=== PATIENT | male | born 1945 | race Caucasian/White ===

== ENCOUNTER 2023-11-16 11:33 | Inpatient (IN) | payer MEDICARE, OTHER, SELFPAY ==
[2023-11-16] VITALS (22 sets, daily range): BP systolic 151–178; BP diastolic 71–86; PULSE 65–99; RESP 18–32; TEMP 35.6–36.7; O2SAT 87–97; BMI 37.0; BMI 35.8
--- NOTE | 2023-11-16 11:51 | EKG12_ITS ---
Test Reason : SOB Blood Pressure : / mmHG Vent. Rate : 068 BPM Atrial Rate : 068 BPM P-R Int : 178 ms QRS Dur : 098 ms QT Int : 416 ms P-R-T Axes : 090 010 215 degrees QTc Int : 442 ms Normal sinus rhythm CANNOT RULE OUT Septal infarct , age undetermined ST & T wave abnormality, consider lateral ischemia Abnormal ECG Confirmed by Andrew Carson ([id number]), society editor MILO BENNETT ([id number]) on 11/18/2023 9:22:56 AM Referred By: Confirmed By:Andrew Carson
--- NOTE | 2023-11-16 11:51 | VDLE_ITS ---
Reason For Study: SOB RIGHT LEFT GSV is normal. GSV is normal. CFV is compressible, spontaneous, phasic, CFV is compressible, spontaneous, phasic, competent and demonstrates normal competent, and demonstrates normal augmentation. augmentation. FV is compressible, spontaneous, phasic, FV is compressible, spontaneous, phasic, competent and demonstrates normal competent and demonstrates normal augmentation. augmentation. POP V is compressible, spontaneous, phasic, POP V is compressible, spontaneous, phasic, competent and demonstrates normal competent and demonstrates normal augmentation. augmentation. T/P Trunk is compressible. T/P Trunk is compressible. PTV is compressible. PTV is compressible. RT PerV is compressible. LT PerV is compressible. Procedure This is a venous duplex using B-mode, color flow and spectral Doppler. Exam performed portable in ED. A preliminary report was called and/or faxed to PT's RN & ED. VL/Venous Duplex US - Nickolas Extrem Interpretation Summary Deep veins of the lower extremities are bilaterally patent and compressible seg mentally. There is no evidence of deep vein thrombosis on either side. Valvular competence appears in tact within the proximal deep venous systems bilaterally. The great saphenous veins appear bila terally patent and compressible segmentally. Ordering Physician: Ranjith Kiser Referring Physician: N/A Performed By: Sima Adams, KAVITA, RVT
--- NOTE | 2023-11-16 11:55 | ED.VIS.DYS ---
HPI History of Present Illness Chief Complaint: Shortness of Breath Informant: patient, spouse/S.O. and family Narrative Narrative: Presents with spouse and family for evaluation. History of dementia at baseline. Sleep apnea with CPAP at night no home oxygen. Asthma history. Reports 10 days ago vacation to [place], first 2 days patient was fatigued. Had a productive cough and had fevers. They went on a cruise from there, this seen the physician on the cruise multiple times. November 10 had workup chest x-ray with possible pneumonia. He is on a 3-day course of Z-Vinicio in addition to Augmentin 3 times daily for 7 days. Reported there is leg swelling. No CHF history. Return 2 days ago, overnight increasing dyspnea and wheeze. Rescue inhaler use multiple times. They went to [facility], they were referred here for evaluation. Patient denies chest or abdominal pain. Denies any current leg pain. 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) Vascular dementia Kidney disease High blood pressure Diabetes type 2, uncontrolled Dementia Home Medications ?Medication ?Instructions ?Recorded ?Last Taken ?Type ascorbic acid (vitamin C) 500 mg 500 mg PO DAILY SUPPLEMENT 07/30/20 11/16/23 History capsule aspirin 81 mg tablet,delayed 81 mg PO DAILY HEART HEALTH 07/30/20 11/16/23 History release atorvastatin 80 mg tablet 80 mg PO DAILY CHOLESTEROL 07/30/20 11/16/23 History cholecalciferol (vitamin D3) 125 125 mcg PO DAILY SUPPLEMENT 07/30/20 11/16/23 History mcg (5,000 unit) capsule insulin degludec 100 35 unit subcut DAILY BLOOD SUGARS 07/30/20 11/16/23 History unit-liraglutide 3.6 mg/mL(3 mL) subcutaneous pen (Ena 100/3.6) metoprolol tartrate 25 mg tablet 25 mg PO DAILY BLOOD PRESSURE 07/30/20 11/16/23 History blood sugar diagnostic (OneTouch #50 ea 08/26/21 Unknown Rx Ultra Test strips) aripiprazole 2 mg tablet 2 mg PO QHS MOOD #30 tabs 12/23/22 11/15/23 Rx bee pollen 550 mg capsule 550 mg PO DAILY SUPPLEMENT 12/23/22 11/16/23 History citalopram 20 mg tablet 20 mg PO DAILY DEPRESSION #30 tabs 12/23/22 11/16/23 Rx amlodipine 10 mg tablet 10 mg PO DAILY BLOOD PRESSURE 11/16/23 11/16/23 History cyanocobalamin (vitamin B-12) 5,000 mcg sublingual DAILY 11/16/23 11/16/23 History 5,000 mcg sublingual tablet SUPPLEMENT (Vitamin B-12) empagliflozin 10 mg tablet 10 mg PO DAILY BLOOD SUGARS 11/16/23 11/16/23 History (Jardiance) metformin 500 mg tablet,extended 500 mg PO BID BLOOD SUGARS 11/16/23 11/16/23 History release 24 hr zinc acetate 50 mg (zinc) capsule 50 mg PO DAILY SUPPLEMENT 11/16/23 11/16/23 History Allergy/AdvReac Type Severity Reaction Status Date / Time No Known Allergies Allergy Verified 11/16/23 11:35 Social History Smoking Status: Never smoker ROS ROS ED Constitutional Constitutional ED: Denies chills, fever(s) or sweats Eyes Eyes: Denies change in vision ENT ENT ED: Denies dysphagia or sore throat Cardiovascular Cardiovascular: Denies chest pain, leg edema, palpitations or racing heartbeat Respiratory/Chest Respiratory/Chest: Reports cough and dyspnea; Denies dyspnea on exertion Gastrointestinal Gastrointestinal: Denies abdominal pain, diarrhea, nausea or vomiting Genitourinary Genitourinary ED: Denies dysuria, hematuria or urinary frequency Musculoskeletal Musculoskeletal: Denies back pain, extremity pain or neck pain Integumentary Denies rash or wounds Neurologic Neurologic: Denies headache(s), paresthesias or weakness EXAM Physical Exam Const Vital Signs: 11/16/23 11:33 11/16/23 11:42 11/16/23 11:59 Temperature 96.8 F L Temperature Source Temporal Pulse Rate 78 70 Respiratory Rate 22 H 21 H Respiratory Effort Short of Breath Respiratory Depth Shallow Respiratory Pattern Normal Blood Pressure 155/76 H Blood Pressure Mean 102 Pulse Ox 90 Oxygen Delivery Method Room Air Room Air Oxygen Flow Rate (L/min) 11/16/23 11:59 11/16/23 12:35 11/16/23 12:35 Temperature 96.8 F L Temperature Source Oral Pulse Rate 65 Respiratory Rate 21 H Respiratory Effort Respiratory Depth Respiratory Pattern Blood Pressure 162/77 H Blood Pressure Mean 105 Pulse Ox 95 97 Oxygen Delivery Method Nasal Cannula Room Air Nasal Cannula Oxygen Flow Rate (L/min) 2 2 11/16/23 13:00 11/16/23 13:27 11/16/23 14:00 Temperature 96.0 F L 97.9 F Temperature Source Temporal Temporal Pulse Rate 65 73 73 Respiratory Rate 21 H 18 20 H Respiratory Effort Respiratory Depth Respiratory Pattern Normal Blood Pressure 160/78 H 173/84 H Blood Pressure Mean 105 113 Pulse Ox 97 96 Oxygen Delivery Method Nasal Cannula Nasal Cannula Oxygen Flow Rate (L/min) 2 11/16/23 14:34 11/16/23 14:38 11/16/23 15:00 Temperature 97.7 F L Temperature Source Oral Pulse Rate 82 99 Respiratory Rate 24 H 32 H Respiratory Effort Respiratory Depth Respiratory Pattern Tachypnea Blood Pressure 178/86 H Blood Pressure Mean 116 Pulse Ox 92 88 Oxygen Delivery Method Room Air Room Air Oxygen Flow Rate (L/min) Positive well nourished and well developed Constitutional Narrative: 2 L nasal cannula, no respiratory distress. General Appearance ED: well developed and NAD HEENT Reports moist mucous membranes normocephalic and atraumatic Eyes EOMs intact bilaterally and conjunctivae normal General Eye ED: Yes normal appearance of both eyes Neck no lymphadenopathy and supple General: Negative for tenderness Chest Wall Chest: Negative for tenderness Resp Resp Narrative: Coarse breath sounds at bases with wheezing. Effort and Inspection: Negative for respiratory distress Cardio regular rate, regular rhythm and no murmurs Peripheral Pulses: pulses 2+ throughout GI normal to inspection, nondistended, normoactive bowel sounds and non-tender Palpation: Negative for guarding or rebound tenderness present Back/Spine no CVA tenderness and no thoracic nor lumbar tenderness Extremity normal to inspection Extremity Narrative: Soft compartments medial thigh and calf bilaterally. Pulses intact. No swelling noted. General Extremety ED: Negative for edema or tenderness General Extremity: Negative for edema Neuro no sensory deficits noted Neuro Narrative: Alert to person and place, baseline. Sensorium / Orientation: awake and alert Skin no rashes or lesions noted and no wounds Sepsis Attestation Sepsis Attestation: Sepsis Ruled Out MDM MDM MDM Narrative Medical decision making narrative: Interventions / MDM: Differential diagnosis: Diagnosis considered but do not suspect: N/A My EKG interpretation: Sinus rate of 68, no ST changes. T wave inversion lateral leads flattening on inferior leads, no old for comparison. Imaging independently reviewed and interpreted by myself: Ultrasound lower extremity: Negative for DVT. Two-view chest x-ray: Scarring at lung bases with hyperinflation. No infiltrates also read by radiology. External documents reviewed: N/A Test considered but not ordered:N/A ED course: Patient worsening cough wheeze recent pneumonia diagnosis on antibiotics. 90% on room air on arrival. He was placed on 2 L nasal cannula by nursing. Will check laboratory work and repeat two-view chest x-ray. Aerosol treatment ordered due to wheezing. With reported travel recent swelling, will ultrasound both lower extremities. EKG T wave inversion lateral leads flattening inferior leads there is no old for comparison. Therefore troponin was added. 1320: Troponin negative. Labs white count 13.6. 2 out of 4 SIRS criteria for lactic acid and blood culture x 1 ordered with shortage of blood culture bottles at this time. Chest x-ray linear scarring appointment radiology. Negative for DVTs on ultrasound. Reevaluation symptoms coarse breath sounds still heard however appears much improved. Is on 2 L nasal cannula. CKD stage III with stable creatinine and GFR. Discussed with family risks and benefits with his recent travel for CT scan IVCON to rule out PE and a better evaluation of his lung cowart. They agree with this. Fluids were started. CT angiogram ordered for further evaluation. Additional aerosol treatment ordered. 1435: Reevaluation pending results of increased coarse breathing and wheezing. Additional aerosol treatment ordered. CT scan results need for PE or infiltrates. Patient was ambulated return desatted down to 88%. Continued on oxygen. Added Solu-Medrol with her his asthma history and wheezing. Glucose 188 in the lab. Considered noninvasive ventilation due to increased work of breathing initially was ordered however with respiratory evaluation symptoms calm down. They will plan on Airvo on the medical floor. Reevaluate the patient he is stable less tachypneic. I discussed with hospitalist Dr. Milian for admission to the medical floor. Will add respiratory panel and COVID studies. Re-evaluation: stable Disposition discussed with patient/family/significant other: Patient and family Case discussed with consulting clinician: N/A This note was generated with [employer]parable Things[employer] software. It may contain incorrect words, spelling, and punctuation that were not noted in checking the note before signing. Lab Data Attestation: I reviewed the patient's lab results. Labs: Laboratory Results - last 24 hr 11/16/23 11/16/23 11:50 12:53 WBC 13.6 H RBC 5.55 Hgb 15.7 Hct 49.5 MCV 89.2 MCH 28.3 MCHC 31.7 L RDW Std Deviation 45.7 H RDW Coeff of Jose Armando 14.0 Plt Count 343 MPV 9.6 Immature Gran % (Auto) 0.500 Neut % (Auto) 83.8 H Lymph % (Auto) 6.8 L Wirt % (Auto) 4.4 Eos % (Auto) 4.1 Baso % (Auto) 0.4 Absolute Neuts (auto) 11.4 H Absolute Lymphs (auto) 0.92 Nucleated RBC % 0 Sodium 143 Potassium 4.1 Chloride 111 H Carbon Dioxide 24.0 Anion Gap 8 BUN 20 H Creatinine 1.63 H Estim Creat Clear Calc 48.63 Est GFR (MDRD) Af Amer 53 L Est GFR (MDRD) Non-Af 44 L BUN/Creatinine Ratio 12.3 Glucose 181 H Lactic Acid 1.3 Calcium 9.5 Total Bilirubin 0.60 AST 14 L ALT 19 Alkaline Phosphatase 108 Troponin I High Sens 20 Total Protein 7.2 Albumin 2.7 L Globulin 4.5 H Albumin/Globulin Ratio 0.6 L Radiography Diagnostic Testing: Clinical Impression(s) from Imaging Studies Chest X-Ray 11/16/23 12:19 IMPRESSION: Hyperinflation. Findings suggestive of scarring at the lung bases. Electronically Signed: Wale Mcclain MD at 12:41 EDT , Chest CTA 11/16/23 13:19 IMPRESSION: No focal consolidation is seen. Scattered calcified granulomas. 4.3 mm noncalcified nodule in the peripheral lateral aspect of the right middle lobe suggestive of a possible small granuloma. Electronically Signed: Wale Mcclain MD at 15:02 EDT , Discharge Plan Triage Chief Complaint: Shortness of Breath ED Provider: Ranjith Kiser Dx/Rx/DC Orders Clinical Impression: Dementia, Asthma exacerbation, Hypoxia, Hyperglycemia, Bronchitis, CKD (chronic kidney disease) stage 3, GFR 30-59 ml/min Prescriptions: No Action atorvastatin 80 mg tablet 80 mg PO DAILY aspirin 81 mg tablet,delayed release (DR/EC) 81 mg PO DAILY metoprolol tartrate 25 mg tablet 25 mg PO DAILY Xultophy 100/3.6 100 unit-3.6 mg /mL (3 mL) insulin pen 35 unit SC DAILY ascorbic acid (vitamin C) 500 mg capsule 500 mg PO DAILY cholecalciferol (vitamin D3) 125 mcg (5,000 unit) capsule 125 mcg PO DAILY bee pollen 550 mg capsule 550 mg PO DAILY citalopram 20 mg tablet 20 mg PO DAILY Qty: 30 12RF aripiprazole 2 mg tablet 2 mg PO QHS Qty: 30 12RF amlodipine 10 mg tablet 10 mg PO DAILY metformin 500 mg tablet extended release 24 hr 500 mg PO BID Jardiance 10 mg tablet 10 mg PO DAILY cyanocobalamin (vitamin B-12) [Vitamin B-12] 5,000 mcg tablet, sublingual 5,000 mcg sublingual DAILY zinc acetate 50 mg (zinc) capsule 50 mg PO DAILY (DME) OneTouch Ultra Test Strip See Rx Instructions .ROUTE .MEDSUPPLY Qty: 50 12RF Rx Instructions: As directed Primary Care Provider: Clara Rice NP Referrals: NOT,DEFINED [Non-Staff] - Print Language: Swiss Disposition Disposition: Acute Care Hospital [facility]
[2023-11-16] MEDS: Ipratropium/Albuterol Sulfate 3 ML AMPUL.NEB INHALATION ×4 (11:59→20:00)
[2023-11-16 12:09] LABS: Absolute Lymphocyte Count 0.92 X10^3/uL (0.83-4.51); Absolute Neutrophil Count 11.4 X10^3/uL (2.0-7.7); Basophil# 0.05 X10^3/uL; Basophil% 0.4 % (0-1); Eosinophil# 0.56 X10^3/uL; Eosinophils% 4.1 % (0-5); Hematocrit 49.5 % (40-54); Hemoglobin 15.7 g/dL (13.0-16.5); Lymphocyte # 0.92 X10^3/ul (0.83-4.51); Lymphocyte % 6.8 % (19-41); Mean Corp Hgb Conc 31.7 g/dL (32-36); Mean Corpuscular Hgb 28.3 pg (27.0-32.0); Mean Corpuscular Volume 89.2 fL (80-94); Mean Platelet Vol. 9.6 fl (6.2-12.0); Monocyte# 0.59 X10^3/uL; Monocyte% 4.4 % (0-10); NRBC Flagged by Analyzer 0 % (0-5); Neutrophil # 11.37 X10^3/uL (2.7-7.7); Neutrophil % 83.8 % (47-70); Platelet Count 343 K/mm3 (150-450); RBC Distribution Width SD 45.7 fl (35.1-43.9); Red Blood Count 5.55 M/mm3 (4.6-6.2); White Blood Count 13.6 K/mm3 (4.4-11.0)
--- NOTE | 2023-11-16 12:19 | RAD_ITS ---
STUDY: X-RAY CHEST REASON FOR EXAM: Male, 78 years old. Cough. Shortness of breath. TECHNIQUE: PA and lateral views of the chest. COMPARISON: None. FINDINGS: EKG electrodes are seen. Hyperinflation. Mild increased linear markings at the lung bases with areas of confluent slightly worse on the left side. This is suggestive of a scarring. No definite infiltrate is seen. There is no demonstrated pleural abnormality. Sternal cerclage wires and vascular clips are present from a prior sternotomy and coronary artery bypass graft procedure (CABG). Normal mediastinum and aurora. Normal visualized pulmonary arteries. There is atherosclerotic tortuosity of the aortic arch and descending thoracic aorta. There are degenerative changes of the visualized thoracic spine. Normal visualized ribs, clavicles, and shoulders. There is no demonstrated abnormality of the visualized soft tissue structures of the upper abdomen. RAD/Chest PA and Lateral IMPRESSION: Hyperinflation. Findings suggestive of scarring at the lung bases. Electronically Signed: Wale Mcclain MD at 12:41 EDT ,
[2023-11-16 12:23] LABS: ALB/GLOB Ratio 0.6 RATIO (0.9-2.4); AST(SGOT) 14 U/L (15-37); Alanine Aminotransfer ALT/SGPT 19 U/L (16-61); Albumin, Serum 2.7 g/dL (3.2-5.0); Alkaline Phosphatase 108 U/L (45-117); Anion Gap 8 (5-15); BUN 20 mg/dL (7-18); BUN/Creat Ratio 12.3 RATIO (10-20); Calcium,Total 9.5 mg/dL (8.5-10.1); Chloride 111 mmol/L (98-107); Creatinine, Serum 1.63 mg/dL (0.70-1.30); EST Glomerular Filtration Rate 44 mL/min (>60); Est Glom Filt Rate - Afr Amer 53 mL/min (>60); Estimated Creatinine Clearance 48.63 ml/min; Globulin 4.5 g/dL (2.2-4.2); Glucose 181 mg/dL (74-106); Potassium 4.1 mmol/L (3.5-5.1); Protein, Total 7.2 g/dL (6.4-8.2); Sodium Level 143 mmol/L (136-145); Troponin-I HS 20 pg/mL (3.0-78.0)
--- NOTE | 2023-11-16 13:19 | CT_ITS ---
STUDY: CTA CHEST REASON FOR EXAM: Male, 78 years old. Dyspnea. Dementia. RADIATION DOSAGE (If Supplied By Facility): CTDIvol = ( 13.85 ) mGy, DLP = ( 611.88 ) mGycm TECHNIQUE: The examination was performed with the intravenous administration of IV 100mL [id number]-370. Post-processing of the angiographic images was performed, with multiplanar reformation and 3D reconstruction. Individualized dose optimization techniques were used for this CT. COMPARISON: Comparison is made with prior chest radiograph done earlier in the day. FINDINGS: Normal enhancement of the main pulmonary artery and right and left pulmonary arteries. Normal enhancement of the bilateral peripheral pulmonary arteries. There is no demonstrated pulmonary embolism. There is atherosclerotic calcification of the aortic arch with tortuosity. There is no demonstrated aortic dissection. There are calcifications of the coronary arteries. There are visualized mediastinal lymph nodes, which are within normal size limits, and with normal morphology. Calcified left hilar lymph nodes. Normal visualized trachea and bronchi. The lungs are well expanded. Mild increased linear markings at the lung bases with minimal prominent at the left lung base suggestive of mild scarring. There is a 4.3 mm noncalcified nodule in the peripheral lateral aspect of the right middle lobe as seen on axial image #138. A 12 month follow-up is suggested. Calcified granuloma in the anterior medial aspect of the left upper lobe. Calcified granuloma in the superior segment of the right lower lobe. Normal pleura. Normal chest wall structures. Normal osseous structures. Questionable small gallstones along the dependent portion of the gallbladder lumen. Small hiatal hernia. CT/CTA Chest W/WO Contrast IMPRESSION: No focal consolidation is seen. Scattered calcified granulomas. 4.3 mm noncalcified nodule in the peripheral lateral aspect of the right middle lobe suggestive of a possible small granuloma. Electronically Signed: Wale Mcclain MD at 15:02 EDT ,
[2023-11-16 13:24] LABS: Lactic Acid 1.3 mmol/L (0.4-1.9)
[2023-11-16] MEDS: 0.9% Normal Saline (500mL Bag) 500 ML 999 ML IV (13:33)
--- NOTE | 2023-11-16 15:05 | ED.RN ---
DR. PERRY NOTIFIED THAT PT. PULSE OX DROPPED TO 88%, PT. EXTREMELY OUT OF BREATH AND TACHYPNEIC UPON GETTING BACK INTO BED. 2l NC PLACCED BACK ON PATIENT AND RT CALLED TO POSSIBLY PLACE CPAP OR BIPAP
--- NOTE | 2023-11-16 15:09 | ED.RN ---
this rn notified rt of need for BIpap
[2023-11-16] MEDS: MethylPREDNISolone 125 MG/2 ML Vial 60 MG IV (15:10)
--- NOTE | 2023-11-16 17:50 | PCM.HP.STD ---
HPI - General General Date of Admission: 11/16/23 Date of Service: 11/16/23 Chief Complaint: Shortness of breath, wheezing HPI Narrative CELENA COPELAND, is a 78 M who presents to the emergency room at [facility] with chief complaint of nonproductive cough, wheezing, and shortness of breath that started approximately 1-1/2 weeks ago when he was on a cruise. Patient was placed on antibiotics during his cruise-he was placed on Zithromax and Augmentin for 5 days at the same time. Patient denies any fevers or chills. Patient has a history of asthma and does not use oxygen but does use CPAP at night at a setting of 12. Information was obtained from the patient's son who is present at the time my examination as well as the patient. Labs obtained in the emergency room revealed a white blood cell count of 13.6, chemistry profile was abnormal for chloride of 111, fattening of 1.63, BUN of 20, and glucose of 181. Patient had a CTA of his chest which showed scattered granulomas, there was no evidence of pulmonary embolism or infiltrate. Patient had a rapid COVID test obtained in the emergency room, this was positive. Patient required oxygen 2 L to maintain a pulse ox above 90%. Patient will be admitted to [place] [address] for acute exacerbation of asthma secondary to COVID-19. Patient is out of the window to treat him with remdesivir, I have placed the patient on IV Decadron every 8 hours for his flareup of asthma. [facility] Medical History Abnormal carotid ultrasound Left acute arterial ischemic stroke, RELAY CHECKER (posterior cerebral artery) Vascular dementia Kidney disease High blood pressure Diabetes type 2, uncontrolled Dementia Home Medications ?Medication ?Instructions ?Recorded ?Last Taken ?Type ascorbic acid (vitamin C) 500 mg 500 mg PO DAILY SUPPLEMENT 07/30/20 11/16/23 History capsule aspirin 81 mg tablet,delayed 81 mg PO DAILY HEART HEALTH 07/30/20 11/16/23 History release atorvastatin 80 mg tablet 80 mg PO DAILY CHOLESTEROL 07/30/20 11/16/23 History cholecalciferol (vitamin D3) 125 125 mcg PO DAILY SUPPLEMENT 07/30/20 11/16/23 History mcg (5,000 unit) capsule insulin degludec 100 35 unit subcut DAILY BLOOD SUGARS 07/30/20 11/16/23 History unit-liraglutide 3.6 mg/mL(3 mL) subcutaneous pen (Ena 100/3.6) metoprolol tartrate 25 mg tablet 25 mg PO DAILY BLOOD PRESSURE 07/30/20 11/16/23 History blood sugar diagnostic (OneTouch #50 ea 08/26/21 Unknown Rx Ultra Test strips) aripiprazole 2 mg tablet 2 mg PO QHS MOOD #30 tabs 12/23/22 11/15/23 Rx bee pollen 550 mg capsule 550 mg PO DAILY SUPPLEMENT 12/23/22 11/16/23 History citalopram 20 mg tablet 20 mg PO DAILY DEPRESSION #30 tabs 12/23/22 11/16/23 Rx amlodipine 10 mg tablet 10 mg PO DAILY BLOOD PRESSURE 11/16/23 11/16/23 History cyanocobalamin (vitamin B-12) 5,000 mcg sublingual DAILY 11/16/23 11/16/23 History 5,000 mcg sublingual tablet SUPPLEMENT (Vitamin B-12) empagliflozin 10 mg tablet 10 mg PO DAILY BLOOD SUGARS 11/16/23 11/16/23 History (Jardiance) metformin 500 mg tablet,extended 500 mg PO BID BLOOD SUGARS 11/16/23 11/16/23 History release 24 hr zinc acetate 50 mg (zinc) capsule 50 mg PO DAILY SUPPLEMENT 11/16/23 11/16/23 History Allergy/AdvReac Type Severity Reaction Status Date / Time No Known Allergies Allergy Verified 11/16/23 11:35 Social History Smoking Status: Never smoker ROS Constitutional Constitutional: Denies anorexia, change in weight, chills, fatigue, fever(s), malaise, night sweats or weakness Eyes Eyes: Denies blurry vision, change in vision, discharge from eye(s) or eye pain Cardiovascular Cardiovascular: Reports dyspnea on exertion; Denies chest pain, claudication, edema or palpitations Respiratory/Chest Respiratory/Chest: Reports cough, dyspnea, shortness of breath at rest, shortness of breath with exertion and wheezing; Denies hemoptysis Gastrointestinal Gastrointestinal: Denies abdominal pain, constipation, diarrhea, hematemesis, hematochezia, melena, nausea or vomiting Genitourinary Genitourinary: Denies dysuria, hematuria, urinary frequency, urinary hesitancy, urinary incontinence or urinary urgency Musculoskeletal Musculoskeletal: Denies back pain, joint pain, joint stiffness, joint swelling, myalgias or neck pain Neurologic Neurologic: Denies abnormal gait, abnormal speech, dizziness, focal weakness, headache(s), loss of vision, numbness, other visual disturbances, paresthesias, syncope or tingling Psychiatric Psychiatric: Denies anxiety, cognitive impairment, depression, irritability, mood swings or suicidal ideation Endocrine Endocrinology: Denies change in body appearance, cold intolerance, excessive sweating, heat intolerance, polydipsia or polyuria Hematologic/Lymphatic Hematologic/Lymphatic: Denies none, anemia, easy bleeding, easy bruising or lymphadenopathy Allergic/Immunologic Allergic/Immunologic: Denies rhinitis, urticaria, eczemia or asthma Vital Signs Vital Signs Vital Signs: 11/16/23 11:33 11/16/23 11:42 11/16/23 11:59 Temperature 96.8 F L Temperature Source Temporal Pulse Rate 78 70 Respiratory Rate 22 H 21 H Respiratory Effort Short of Breath Respiratory Depth Shallow Respiratory Pattern Normal Blood Pressure 155/76 H Blood Pressure Mean 102 Pulse Ox 90 Oxygen Delivery Method Room Air Room Air Oxygen Flow Rate (L/min) 11/16/23 11:59 11/16/23 12:35 11/16/23 12:35 Temperature 96.8 F L Temperature Source Oral Pulse Rate 65 Respiratory Rate 21 H Respiratory Effort Respiratory Depth Respiratory Pattern Blood Pressure 162/77 H Blood Pressure Mean 105 Pulse Ox 95 97 Oxygen Delivery Method Nasal Cannula Room Air Nasal Cannula Oxygen Flow Rate (L/min) 2 2 11/16/23 13:00 11/16/23 13:27 11/16/23 14:00 Temperature 96.0 F L 97.9 F Temperature Source Temporal Temporal Pulse Rate 65 73 73 Respiratory Rate 21 H 18 20 H Respiratory Effort Respiratory Depth Respiratory Pattern Normal Blood Pressure 160/78 H 173/84 H Blood Pressure Mean 105 113 Pulse Ox 97 96 Oxygen Delivery Method Nasal Cannula Nasal Cannula Oxygen Flow Rate (L/min) 2 11/16/23 14:34 11/16/23 14:38 11/16/23 15:00 Temperature 97.7 F L Temperature Source Oral Pulse Rate 82 99 Respiratory Rate 24 H 32 H Respiratory Effort Respiratory Depth Respiratory Pattern Tachypnea Blood Pressure 178/86 H Blood Pressure Mean 116 Pulse Ox 92 88 Oxygen Delivery Method Room Air Room Air Oxygen Flow Rate (L/min) 11/16/23 16:00 11/16/23 17:00 11/16/23 17:33 Temperature 97.9 F 98.0 F 98.0 F Temperature Source Oral Oral Pulse Rate 77 80 79 Respiratory Rate 18 18 19 H Respiratory Effort Respiratory Depth Respiratory Pattern Blood Pressure 151/71 H 158/76 H 158/79 H Blood Pressure Mean 97 103 105 Pulse Ox 93 95 96 Oxygen Delivery Method Nasal Cannula Nasal Cannula Oxygen Flow Rate (L/min) 2 2 Weight Weight: 117 kg Body Mass Index (BMI) 37.0 Physical Exam Const alert and no apparent distress General Appearance: cooperative, well kempt and well developed Orientation / Consciousness: awake, oriented to person and oriented to place HEENT normocephalic, head/scalp atraumatic, hearing grossly normal bilaterally and moist oral mucous membranes Eyes PERRL, EOMs intact bilaterally and conjunctivae normal Neck supple, no JVD, thyroid normal and no carotid bruits General: trachea midline Resp normal respiratory effort, no retractions, no use of accessory muscles and clear to auscultation bilaterally Auscultation: Negative for rales, rhonchi or wheezes Cardio regular rate, regular rhythm, S1 normal heart sound, S2 normal heart sound, no murmurs, no rub and no gallops GI normal to inspection, nondistended, normoactive bowel sounds, soft to palpation, non-tender and non-distended Extremity no clubbing, cyanosis or edema Skin no rashes or lesions noted General Skin Exam: no breakdown Neuro CN's II-XII intact bilaterally, moves all extremities, no focal motor deficits and no sensory deficits noted Sensorium / Orientation: awake, alert, oriented to person and oriented to place Speech: speech normal Psych affect normal Results Lab / Micro Data 11/16/23 11:50 11/16/23 11:50 Labs: Laboratory Results - last 24 hr 11/16/23 11:50: WBC 13.6 H, RBC 5.55, Hgb 15.7, Hct 49.5, MCV 89.2, MCH 28.3, MCHC 31.7 L, RDW Std Deviation 45.7 H, RDW Coeff of Jose Armando 14.0, Plt Count 343, MPV 9.6, Immature Gran % (Auto) 0.500, Neut % (Auto) 83.8 H, Lymph % (Auto) 6.8 L, Deuel % (Auto) 4.4, Eos % (Auto) 4.1, Baso % (Auto) 0.4, Absolute Neuts (auto) 11.4 H, Absolute Lymphs (auto) 0.92, Nucleated RBC % 0, Sodium 143, Potassium 4.1, Chloride 111 H, Carbon Dioxide 24.0, Anion Gap 8, BUN 20 H, Creatinine 1.63 H, Estim Creat Clear Calc 48.63, Est GFR (MDRD) Af Amer 53 L, Est GFR (MDRD) Non-Af 44 L, BUN/Creatinine Ratio 12.3, Glucose 181 H, Calcium 9.5, Total Bilirubin 0.60, AST 14 L, ALT 19, Alkaline Phosphatase 108, Troponin I High Sens 20, Total Protein 7.2, Albumin 2.7 L, Globulin 4.5 H, Albumin/Globulin Ratio 0.6 L 11/16/23 12:53: Lactic Acid 1.3 Micro: Microbiology 11/16/23 15:37 Mucosa - Nose Coronavirus COVID-19 PCR - Final SARS-CoV-2 (COVID 19 PCR) Imaging Radiology Impression Chest X-Ray 11/16/23 12:19 IMPRESSION: Hyperinflation. Findings suggestive of scarring at the lung bases. Electronically Signed: Wale Mcclain MD at 12:41 EDT , Chest CTA 11/16/23 13:19 IMPRESSION: No focal consolidation is seen. Scattered calcified granulomas. 4.3 mm noncalcified nodule in the peripheral lateral aspect of the right middle lobe suggestive of a possible small granuloma. Electronically Signed: Wale Mcclain MD at 15:02 EDT , Assessment & Plan Assessment/Plan (1) COVID: PLAN: Plan 1. COVID-19 infection-again patient is out of the window for remdesivir, I have elected to place him on IV Decadron at more than 6 mg a day due to his wheezing and exacerbation of asthma. #2 exacerbation of asthma secondary to COVID-19 infection-patient will be placed on Decadron IV 4 mg every 8 hours, he will receive aerosol treatments, pulse ox will be monitored #3 hypoxia secondary to #2-pulse ox will be monitored, patient is currently on low-flow oxygen #4 type 2 diabetes-patient's blood sugars will be monitored, sliding scale insulin will be administered as needed #5 essential hypertension-patient will remain on his home medications #6 mild dementia-patient has a history of mild dementia, he is not receiving any treatment for this at this time, patient is alert and oriented x 2 for this examiner Total clinical time spent by myself addressing the patient's medical issues, reviewing all of his data, and collaborating with patient's care team: 55 minutes Charges/Coding Visit Charges Inpatient E&M: 04355 Init Hosp L2
[2023-11-16] MEDS: 0.9% Normal Saline (1000mL) 1,000 ML 75 ML IV (18:20)
[2023-11-16] MEDS: Heparin Injection (Vial) 5,000 UNIT/ML VIAL 5000 UNIT SC (21:48)
[2023-11-16] MEDS: dexAMETHasone 4 MG/ML Vial IV (21:48)
[2023-11-16] MEDS: Insulin Lispro 100 UNIT/ML INSULN.PEN SC (21:56)
[2023-11-16 22:25] LABS: Bedside Glucose 216 mg/dL (74-106)
[2023-11-17] VITALS (14 sets, daily range): BP systolic 160–170; BP diastolic 53–90; PULSE 63–83; RESP 15–21; TEMP 36.1–37.1; O2SAT 93–97
[2023-11-17] MEDS: Ipratropium/Albuterol Sulfate 3 ML AMPUL.NEB INHALATION ×4 (01:38→19:26)
--- NOTE | 2023-11-17 04:25 | CPS ---
2L oxygen bled into CPAP machine HS
[2023-11-17 06:05] LABS: Absolute Lymphocyte Count 0.66 X10^3/uL (0.83-4.51); Absolute Neutrophil Count 13.7 X10^3/uL (2.0-7.7); Basophil# 0.02 X10^3/uL; Basophil% 0.1 % (0-1); Eosinophil# 0.02 X10^3/uL; Eosinophils% 0.1 % (0-5); Hematocrit 44.7 % (40-54); Hemoglobin 14.1 g/dL (13.0-16.5); Lymphocyte # 0.66 X10^3/ul (0.83-4.51); Lymphocyte % 4.5 % (19-41); Mean Corp Hgb Conc 31.5 g/dL (32-36); Mean Corpuscular Hgb 28.1 pg (27.0-32.0); Mean Corpuscular Volume 89.2 fL (80-94); Mean Platelet Vol. 9.7 fl (6.2-12.0); Monocyte# 0.13 X10^3/uL; Monocyte% 0.9 % (0-10); NRBC Flagged by Analyzer 0 % (0-5); Neutrophil # 13.72 X10^3/uL (2.7-7.7); Neutrophil % 93.7 % (47-70); Platelet Count 321 K/mm3 (150-450); RBC Distribution Width CV 14.2 % (11.6-14.6); RBC Distribution Width SD 45.5 fl (35.1-43.9); Red Blood Count 5.01 M/mm3 (4.6-6.2); White Blood Count 14.7 K/mm3 (4.4-11.0)
[2023-11-17] MEDS: dexAMETHasone 4 MG/ML Vial IV ×2 (06:30→14:26)
[2023-11-17] MEDS: Insulin Lispro 100 UNIT/ML INSULN.PEN SC ×4 (06:30→21:10)
[2023-11-17 06:39] LABS: Anion Gap 9 (5-15); BUN 25 mg/dL (7-18); BUN/Creat Ratio 16.2 RATIO (10-20); Chloride 110 mmol/L (98-107); Creatinine, Serum 1.54 mg/dL (0.70-1.30); EST Glomerular Filtration Rate 47 mL/min (>60); Est Glom Filt Rate - Afr Amer 57 mL/min (>60); Estimated Creatinine Clearance 50.61 ml/min; Glucose 190 mg/dL (74-106); Potassium 4.6 mmol/L (3.5-5.1); Sodium Level 139 mmol/L (136-145)
[2023-11-17 07:20] LABS: Bedside Glucose 176 mg/dL (74-106)
[2023-11-17] MEDS: 0.9% Normal Saline (1000mL) 1,000 ML 75 ML IV ×2 (07:45→21:14)
[2023-11-17] MEDS: Heparin Injection (Vial) 5,000 UNIT/ML VIAL 5000 UNIT SC ×2 (12:15→20:55)
[2023-11-17 13:32] LABS: Bedside Glucose 211 mg/dL (74-106)
--- NOTE | 2023-11-17 14:45 | PN_ITS ---
Subjective Subjective Patient seen and examined. HE feels much better. He denies any fever, chills, cough, chest pain, palpitations, dizziness, nausea, vomiting or any other symptoms. His breathing has improved and he is on room air. He has remained hemodynamically state. Objective Data Objective Data Vital Signs: Vital Signs Temp Pulse Resp BP Pulse Ox O2 Del Method O2 Flow Rate 98.8 F 74 16 160/90 H 96 Room Air 2 11/17/23 08:00 11/17/23 13:16 11/17/23 13:16 11/17/23 08:00 11/17/23 08:00 11/17/23 10:00 11/17/23 06:14 FiO2 28 11/17/23 06:50 Oxygen Flow Rate (L/min) 2 Oxygen Delivery Method Room Air Weight: 249 lb 9.012 oz Body Mass Index (BMI) 35.8 Intake & Output: Intake and Output for Last 24 Hours 11/15/23 11/16/23 11/17/23 23:59 23:59 23:59 Intake Total 600 / 600 2300 / 2300 Output Total 800 / 800 Balance 600 / 600 1500 / 1500 Lab / Micro Data 11/17/23 05:48 11/17/23 05:48 Labs: Laboratory Results - last 24 hr 11/16/23 21:55: POC Glucose 216 H 11/17/23 05:48: WBC 14.7 H, RBC 5.01, Hgb 14.1, Hct 44.7, MCV 89.2, MCH 28.1, M CHC 31.5 L, RDW Std Deviation 45.5 H, RDW Coeff of Jose Armando 14.2, Plt Count 321, MPV 9.7, Immature Gran % (Auto) 0.700, Neut % (Auto) 93.7 H, Lymph % (Auto) 4.5 L, [place]vert % (Auto) 0.9, Eos % (Auto) 0.1, Baso % (Auto) 0.1, Absolute Neuts (auto) 13.7 H, Absolute Lymphs (auto) 0.66 L, Nucleated RBC % 0, Sodium 139, Potassium 4.6, Chloride 110 H, Carbon Dioxide 20.0 L, Anion Gap 9, BUN 25 H, Creatinine 1.54 H, Estim Creat Clear Calc 50.61, Est GFR (MDRD) Af Amer 57 L, Est GFR (MDRD) Non-Af 47 L, BUN/Creatinine Ratio 16.2, Glucose 190 H, Calcium 9.0 11/17/23 06:28: POC Glucose 176 H 11/17/23 12:12: POC Glucose 211 H Micro: Microbiology 11/16/23 15:37 Mucosa - Nasopharyngeal Respiratory Panel (PCR) - Final 11/16/23 15:37 Mucosa - Nose Coronavirus COVID-19 PCR - Final SARS-CoV-2 (COVID 19 PCR) Radiography Diagnostic Testing: Radiology Impression Venous Doppler Study 11/16/23 11:51 Interpretation Summary Deep veins of the lower extremities are bilaterally patent and compressible segmentally. There is no evidence of deep vein thrombosis on either side. Valvular competence appears intact within the proximal deep venous systems bilaterally. The great saphenous veins appear bilaterally patent and compressible segmentally. Ordering Physician: Ranjith Kiser Referring Physician: N/A Performed By: Sima Adams, RDCS, RVT Chest CTA 11/16/23 13:19 IMPRESSION: No focal consolidation is seen. Scattered calcified granulomas. 4.3 mm noncalcified nodule in the peripheral lateral aspect of the right middle lobe suggestive of a possible small granuloma. Electronically Signed: Wale Mcclain MD at 15:02 EDT , Physical Exam Const alert, oriented x3 and no apparent distress General Appearance: cooperative and well developed HEENT normocephalic, head/scalp atraumatic, moist oral mucous membranes and oropharynx normal Eyes PERRL and EOMs intact bilaterally Neck supple and no JVD Lymph Lymphatic: no lymphadenopathy noted and no lymphedema noted Resp Resp Narrative: mildly diminished breath sounds bibasally, no wheezes or crackles. Cardio regular rate, regular rhythm, S1 normal heart sound, S2 normal heart sound and no murmurs GI normal to inspection, nondistended, normoactive bowel sounds, soft to palpation, non-tender and non-distended Extremity normal capillary refill, no clubbing, cyanosis or edema and no calf tenderness General Extremity: no tenderness to palpation of joints or extremities Skin General Skin Exam: no breakdown and turgor normal Neuro CN's II-XII intact bilaterally, no focal motor deficits, no sensory deficits noted and deep tendon reflexes 2+ bilaterally Motor Exam: strength 5/5 throughout and general weakness Psych thought process normal, cooperative and affect normal Appearance: appropriate Assessment & Plan Assessment/Plan (1) COVID: (2) Hypoxia: (3) Asthma exacerbation: PLAN: Plan #Acute asthma exacerbation * Patient feeling much better. He is being weaned off of oxygen and is on room air. Breathing treatments bronchodilators. * Currently on IV Decadron. Will cut down dose to once daily. * #COVID 19 infection: currently asymptomatic. on room air. on IV decadron. Will reduce to once daily dosing. #Type 2 diabetes mellitus: on jardiance and metformin. ISS. Accuchecks ACHS #Depression; on aripiprazole and citalopram #CKD stage III: Cr is 1.54, with a baseline of 1.56 from 2016. Will monitor. #Hypertension: on amlodipine and metoprolol. DVT prophylaxis: Heparin Charges/Coding Visit Charges Inpatient E&M: 86924 Subs Hosp L2
--- NOTE | 2023-11-17 15:44 | CASEMGMT ---
Social Work Pt's spouse requesting to speak with the SW. Spouse stating that pt and spouse just returned from a two week vacation from [place]. Spouse reports pt was increasingly weak on vacation and spouse had to provide care throughout trip. Pt was unable to care for himself. Returned home from trip on Wednesday, went to urgent care on Wednesday and was sent to ED and admitted. Pt feels like she is unable to care for pt in his current condition. Pt is requiring spouse to provide for all care needs and spouse is exhausted. Spouse requesting short term rehab stay for pt. SW explained that therapy will be ordered to determine if short term SNF stay is appropriate. Spouse states that if pt does not qualify for SNF under insurance, she would be willing to private pay. A list of SNF providers including quality and resource use data and consistent with the patient?s preferred geographic region, medical needs, and insurance network were provided from the [employer] Guide. Preferred providers are [facility], [facility], [facility], [facility]. SW did inform pt spouse that pt would need to be agreeable with discharge plan. Spouse to talk to pt. SW will await therapy evals and then make appropriate referrals. RNLEÓN vela. MARYJO Gibbs
--- NOTE | 2023-11-17 15:59 | CASEMGMT ---
DAVIDE TRAORE Assessment Face to Face with patient for initial transition planning/care coordination assessment. DAVIDE TRAORE introduced self and role at [facility], pt voices understanding. Pt is A&Ox3 and is resting comfortably in the chair and is calm. Pt at bedside. Care providers, pharmacy, and demographics verified. Admitting dx: Asthma Flair up, COVID + LACE Strata: 2 PCP: Clara Rice Specialists: Dr. Camacho (Cardio - [place]), Uli (Nephro), Dr. Ford (Endo -[place]), Opal (Pulm) Preferred Pharmacy: [facility] Insurance: [employer] A/B, [employer] Prescription Benefit: Yes LNOK: Juliann Mcgarry (W) Living Arrangements: Pt lives with his in a single story home with 3 step to enter ADLs/IADLs: is the pty CG Transportation: . Denies concerns DME: CPAP @ [facility] with no additional oxygen. CPAP supplied through [facility]. Pt is on RA now. If pt DC's home and qualifies for oxygen, prefers [facility]. Pt also has a CBGM and enough supplies. Electric scooter. Raised toilet seat. HHC/SNF: Denies SNF Hx. States HHC Hx in 2018 but is unsure of the agency Pt?s goal: Return to PLOF Plan: TBD. Anticipate SNF vs Home with HHC. See SW note. PT is pending. At this time, the pt appears agreeable to going to a SNF for further rehab if warranted. CM and SW to follow PT recommendations and f/u with the pt and pt subsequently to decipher the safest DC plan moving forward. Abraham Treviño RN, CM
[2023-11-17] MEDS: metFORMIN (XR) 500 MG Tablet PO (16:44)
[2023-11-17 19:16] LABS: Bedside Glucose 284 mg/dL (74-106)
[2023-11-17] MEDS: ARIPiprazole 2 MG Tablet PO (20:54)
[2023-11-17 21:34] LABS: Bedside Glucose 224 mg/dL (74-106)
[2023-11-18] VITALS (10 sets, daily range): BP systolic 154–175; BP diastolic 64–79; PULSE 67–77; RESP 15–18; TEMP 36.2–36.8; O2SAT 92–98
[2023-11-18] MEDS: Ipratropium/Albuterol Sulfate 3 ML AMPUL.NEB INHALATION ×3 (01:51→13:57)
[2023-11-18] MEDS: Insulin Lispro 100 UNIT/ML INSULN.PEN SC ×2 (06:33→12:41)
[2023-11-18 06:54] LABS: Bedside Glucose 222 mg/dL (74-106)
[2023-11-18 07:27] LABS: Absolute Lymphocyte Count 0.79 X10^3/uL (0.83-4.51); Absolute Neutrophil Count 18.1 X10^3/uL (2.0-7.7); Basophil# 0.01 X10^3/uL; Basophil% 0.1 % (0-1); Eosinophil# 0.01 X10^3/uL; Eosinophils% 0.1 % (0-5); Hematocrit 43.6 % (40-54); Hemoglobin 13.7 g/dL (13.0-16.5); Lymphocyte # 0.79 X10^3/ul (0.83-4.51); Mean Corp Hgb Conc 31.4 g/dL (32-36); Mean Corpuscular Volume 89.2 fL (80-94); Mean Platelet Vol. 9.7 fl (6.2-12.0); Monocyte# 0.57 X10^3/uL; Monocyte% 2.9 % (0-10); NRBC Flagged by Analyzer 0 % (0-5); Neutrophil # 18.06 X10^3/uL (2.7-7.7); Neutrophil % 92.1 % (47-70); Platelet Count 332 K/mm3 (150-450); RBC Distribution Width CV 14.2 % (11.6-14.6); Red Blood Count 4.89 M/mm3 (4.6-6.2); White Blood Count 19.6 K/mm3 (4.4-11.0)
[2023-11-18 08:00] LABS: Anion Gap 6 (5-15); BUN 31 mg/dL (7-18); BUN/Creat Ratio 19.5 RATIO (10-20); Calcium,Total 8.8 mg/dL (8.5-10.1); Chloride 113 mmol/L (98-107); Creatinine, Serum 1.59 mg/dL (0.70-1.30); EST Glomerular Filtration Rate 45 mL/min (>60); Est Glom Filt Rate - Afr Amer 55 mL/min (>60); Estimated Creatinine Clearance 49.02 ml/min; Glucose 227 mg/dL (74-106); Potassium 4.2 mmol/L (3.5-5.1); Sodium Level 141 mmol/L (136-145)
[2023-11-18] MEDS: dexAMETHasone 4 MG Tablet 6 MG PO (08:18)
[2023-11-18] MEDS: metFORMIN (XR) 500 MG Tablet PO (08:18)
[2023-11-18] MEDS: Ascorbic Acid 500 MG Tablet PO (08:19)
[2023-11-18] MEDS: Atorvastatin Calcium 80 MG Tablet PO (08:19)
[2023-11-18] MEDS: Zinc Sulfate 50 mg zinc (220 mg) ORAL capsule PO (08:19)
[2023-11-18] MEDS: Metoprolol Tartrate 25 MG Tablet PO (08:19)
[2023-11-18] MEDS: amLODIPine 10 MG Tablet PO (08:20)
[2023-11-18] MEDS: Cholecalciferol (Vit D3) 125 MCG CAPSULE (5,000 UNITS) PO (08:20)
[2023-11-18] MEDS: Aspirin E.C. 81 MG Tablet PO (08:20)
[2023-11-18] MEDS: Heparin Injection (Vial) 5,000 UNIT/ML VIAL 5000 UNIT SC (08:20)
[2023-11-18] MEDS: Empagliflozin 10 MG Tablet PO (08:20)
[2023-11-18] MEDS: Citalopram 20 MG Tablet PO (08:20)
--- NOTE | 2023-11-18 11:05 | CASEMGMT ---
Social Work DESTIN spoke with physician, RN and Therapy who all state pt does not meet criteria for skilled level of care at SNF due to functional abilities. Phone call to pt who continues to express concerns with pt returning home. SW spoke with [facility] and they would consider pt for admission. SW informed pt of this and that pt would be private pay and would need to be agreeable to discharge to an ECF. After discussion and consideration, pt has decided she can take pt home and provide needs as they arise. Physician notified that plan is for pt to return home and can dc when physician feels pt is ready. Plan: Home with S MARYJO Donis
--- NOTE | 2023-11-18 11:23 | DS.PCM_ITS ---
Providers Date of Admission: 11/16/23 Date of Discharge: 11/18/23 Primary Care Physician: OLU Damon Reason For Visit: ASTHMA FLAIR UP Diagnosis Discharge Diagnosis (1) COVID: Status: Acute Code(s): U07.1 - COVID-19 (2) Hypoxia: Status: Acute Code(s): R09.02 - Hypoxemia (3) Asthma exacerbation: Status: Acute Code(s): J45.901 - Unspecified asthma with (acute) exacerbation Plan #Acute asthma exacerbation * Patient feeling much better. He is being weaned off of oxygen and is on room air. Breathing treatments bronchodilators. * Currently on IV Decadron. Will cut down dose to once daily. * #COVID 19 infection: currently asymptomatic. on room air. on IV decadron. Will reduce to once daily dosing. #Type 2 diabetes mellitus: on jardiance and metformin. ISS. Accuchecks ACHS #Depression; on aripiprazole and citalopram #CKD stage III: Cr is 1.54, with a baseline of 1.56 from 2016. Will monitor. #Hypertension: on amlodipine and metoprolol. DVT prophylaxis: Heparin Medications at Discharge Home Medications ascorbic acid (vitamin C) 500 mg capsule 500 mg PO DAILY SUPPLEMENT 07/30/20 aspirin 81 mg tablet,delayed release 81 mg PO DAILY HEART HEALTH 07/30/20 atorvastatin 80 mg tablet 80 mg PO DAILY CHOLESTEROL 07/30/20 cholecalciferol (vitamin D3) 125 mcg (5,000 unit) capsule 125 mcg PO DAILY SUPPLEMENT 07/30/20 insulin degludec 100 unit-liraglutide 3.6 mg/mL(3 mL) subcutaneous pen (Xultophy 100/3.6) 35 unit subcut DAILY BLOOD SUGARS 07/30/20 metoprolol tartrate 25 mg tablet 25 mg PO DAILY BLOOD PRESSURE 07/30/20 blood sugar diagnostic ([employer] Ultra Test strips) #50 ea 08/26/21 aripiprazole 2 mg tablet 2 mg PO QHS MOOD #30 tabs 12/23/22 bee pollen 550 mg capsule 550 mg PO DAILY SUPPLEMENT 12/23/22 citalopram 20 mg tablet 20 mg PO DAILY DEPRESSION #30 tabs 12/23/22 amlodipine 10 mg tablet 10 mg PO DAILY BLOOD PRESSURE 11/16/23 cyanocobalamin (vitamin B-12) 5,000 mcg sublingual tablet (Vitamin B-12) 5,000 mcg sublingual DAILY SUPPLEMENT 11/16/23 empagliflozin 10 mg tablet (Jardiance) 10 mg PO DAILY BLOOD SUGARS 11/16/23 metformin 500 mg tablet,extended release 24 hr 500 mg PO BID BLOOD SUGARS 11/16/23 zinc acetate 50 mg (zinc) capsule 50 mg PO DAILY SUPPLEMENT 11/16/23 dexamethasone 6 mg tablet 6 mg PO DAILY #7 tabs 11/18/23 Hospital Course Operations None Procedures None Summary of Care Provided Minutes Spent on Discharge: 55 Hospital Course: Patient is a 78-year-old male with past medical history of following with home data through the ED on 11/16/2023 with a complaint of nonproductive cough, wheezing and shortness of breath which started about 1 week prior to admission because he was admitted to [place]. He was placed on Augmentin and azithromycin for 5 days was on the cruise. However his symptoms persisted and so when he came back from the cruise and flew home, he came into the ED. CT of the chest was negative for any evidence of PE. COVID test done was positive. He was admitted and managed for acute asthma exacerbation as well as COVID-19 infection. He was out of the window to be treated for remdesivir as he was started on IV Decadron as well as breathing treatments and bronchodilators. Patient was initially requiring oxygen but was weaned down to room air. He remained on room air throughout the admission. He did well with therapy and was discharged home on 11/18/2023. He was discharged with a prescription for p.o. Decadron 6 mg daily for 7 days to complete a 10 day course. He is follow-up with his primary care doctor within 1 to 2 weeks. Patient seen and examined prior to discharge. He had no active complaints and had an uneventful night. Review of systems otherwise negative. Labs and vitals reviewed. Home medication reviewed and reconciled. Physical Exam Const alert, oriented x3 and no apparent distress General Appearance: cooperative, comfortable, well kempt and well developed Orientation / Consciousness: awake, oriented to person and oriented to place HEENT normocephalic, head/scalp atraumatic, hearing grossly normal bilaterally, moist oral mucous membranes and oropharynx normal Mouth: oral and palatal mucosa normal Eyes PERRL, EOMs intact bilaterally and conjunctivae normal Neck supple, no JVD, thyroid normal and no carotid bruits General: trachea midline Lymph Lymphatic: no lymphadenopathy noted and no lymphedema noted Resp normal respiratory effort, no retractions, no use of accessory muscles and clear to auscultation bilaterally Auscultation: Negative for rales, rhonchi or wheezes Cardio regular rate, regular rhythm, S1 normal heart sound, S2 normal heart sound, no murmurs, no rub and no gallops GI normal to inspection, nondistended, normoactive bowel sounds, soft to palpation, non-tender and non-distended Extremity normal to inspection, full ROM, normal capillary refill, no clubbing, cyanosis or edema and no calf tenderness General Extremity: no tenderness to palpation of joints or extremities Skin no rashes or lesions noted General Skin Exam: no breakdown and turgor normal Neuro oriented x3, CN's II-XII intact bilaterally, moves all extremities, no focal motor deficits, no sensory deficits noted and deep tendon reflexes 2+ bilaterally Sensorium / Orientation: awake, alert, oriented to person and oriented to place Speech: speech normal Motor Exam: strength 5/5 throughout and general weakness Psych thought process normal, cooperative and affect normal Appearance: appropriate Weight / BMI Weight Weight: 249 lb 9.012 oz Body Mass Index (BMI) 35.8 ABG / Lab / Microbiology Data 11/18/23 06:54 11/18/23 06:54 Laboratory: Laboratory Results - last 24 hr 11/17/23 12:12: POC Glucose 211 H 11/17/23 16:43: POC Glucose 284 H 11/17/23 21:08: POC Glucose 224 H 11/18/23 06:31: POC Glucose 222 H 11/18/23 06:54: WBC 19.6 H, RBC 4.89, Hgb 13.7, Hct 43.6, MCV 89.2, MCH 28.0, M CHC 31.4 L, RDW Std Deviation 46.0 H, RDW Coeff of Jose Armando 14.2, Plt Count 332, MPV 9.7, Immature Gran % (Auto) 0.800, Neut % (Auto) 92.1 H, Lymph % (Auto) 4.0 L, [place] % (Auto) 2.9, Eos % (Auto) 0.1, Baso % (Auto) 0.1, Absolute Neuts (auto) 18.1 H, Absolute Lymphs (auto) 0.79 L, Nucleated RBC % 0, Sodium 141, Potassium 4.2, Chloride 113 H, Carbon Dioxide 22.0, Anion Gap 6, BUN 31 H, Creatinine 1.59 H, Estim Creat Clear Calc 49.02, Est GFR (MDRD) Af Amer 55 L, Est GFR (MDRD) Non-Af 45 L, BUN/Creatinine Ratio 19.5, Glucose 227 H, Calcium 8.8 Microbiology: Microbiology 11/16/23 15:37 Mucosa - Nasopharyngeal Respiratory Panel (PCR) - Final 11/16/23 15:37 Mucosa - Nose Coronavirus COVID-19 PCR - Final SARS-CoV-2 (COVID 19 PCR) D/C Instructions Discharge Diet: Low fat / Low cholesterol Discharge Activity: Return to Normal Activity Weight Bearing Status: Weight bearing as tolerated Call your doctor if you observe: Fever of 101 or Higher, Shortness of breath, Dizziness, Swelling in the ankles and Chest pain Meaningful Use Info Meaningful Use Meaningful Use Diagnoses (Choose all that apply): None applicable Ischemic Stroke Statin Dosing Therapy Reference: STATIN DOSE THERAPY REFERENCE: * Patients > 75 years receive moderate or high dose statin therapy. * Patients 75 years or YOUNGER should receive HIGH intensity statin dose unless contraindicated. You will be required to document reason for non-treatment if statin daily dose does not meet guidelines. HIGH DOSE STATIN THERAPY DAILY Atorvastatin > than or = to 40 mg Rosuvastatin > than or = to 20 mg Amlodipine + Atorvastatin > than or = to 2.5/40 mg Ezetimibe + Simvastatin 10/80 mg Simvastatin 80mg Discharge Plan Admission Admit Date/Time: 11/16/23 15:24 Primary Reason for Your Visit: acute asthma exacerbation, COVID Attending Provider: Nani Dunn Primary Care Provider: Clara Rice NP Consulting Providers: Bryant Milian Instructions Patient Instructions: Coronavirus Disease 2019 (COVID-19): Overview Discharge Orders/Prescriptions Prescriptions: New dexamethasone 6 mg tablet 6 mg PO DAILY Qty: 7 0RF Continued atorvastatin 80 mg tablet 80 mg PO DAILY aspirin 81 mg tablet,delayed release (DR/EC) 81 mg PO DAILY metoprolol tartrate 25 mg tablet 25 mg PO DAILY Xultophy 100/3.6 100 unit-3.6 mg /mL (3 mL) insulin pen 35 unit SC DAILY ascorbic acid (vitamin C) 500 mg capsule 500 mg PO DAILY cholecalciferol (vitamin D3) 125 mcg (5,000 unit) capsule 125 mcg PO DAILY bee pollen 550 mg capsule 550 mg PO DAILY citalopram 20 mg tablet 20 mg PO DAILY Qty: 30 12RF aripiprazole 2 mg tablet 2 mg PO QHS Qty: 30 12RF amlodipine 10 mg tablet 10 mg PO DAILY metformin 500 mg tablet extended release 24 hr 500 mg PO BID Jardiance 10 mg tablet 10 mg PO DAILY cyanocobalamin (vitamin B-12) [Vitamin B-12] 5,000 mcg tablet, sublingual 5,000 mcg sublingual DAILY zinc acetate 50 mg (zinc) capsule 50 mg PO DAILY (DME) OneTouch Ultra Test Strip See Rx Instructions .ROUTE .MEDSUPPLY Qty: 50 12RF Rx Instructions: As directed Referrals / Follow Up: NOT,DEFINED [Non-Staff] - Clara Rice NP, HEARING AIDE TECHNICIAN-C [Primary Care Provider] - Within 1 Week Disposition Disposition (needs filled in before D/C Order can be placed): Home, Self Care Charges/Coding Visit Charges Inpatient E&M: 64098 Disch Hosp >30min
--- NOTE | 2023-11-18 12:20 | CASEMGMT ---
Addendum entered by Ananth Treviño 11/18/23 15:33: [facility] returns call and states that they are able to accept the pt for SOC tomorrow. DC plan updated. Addendum entered by Ananth Treviño 11/18/23 14:44: [facility] states that the referral is still pending. Pt RN updated. Original Note: Order placed for DC. See SW note. This RN CM communicated with the pt and the pt who state that they are interested in HHC. At this time, they deny wanting to see a list of local in-network HHC companies and state that they would like to go through [facility]. TC to [facility] and referral made for SN, PT, and OT. Awaiting return response. Pt RN notified and states that the pt will be picking the pt up today around 1500. [facility].
[2023-11-18 13:02] LABS: Bedside Glucose 231 mg/dL (74-106)
--- NOTE | 2023-11-18 13:37 | PHA.DC.MC.R ---
Pharmacy [facility] has performed discharge medication reconciliation and counseling for this patient. Patient counseled via telephone due to COVID precautions. 1. DEXAMETHASONE 6MG PO DAILY X 7 DAYS The patient's discharge medication list was reviewed for discrepancies and discrepancies were resolved. The patient was counseled on the following discharge medications and changes in medications for homegoing were reviewed. The Reason for Use, instructions for use, and potential side effects were reviewed for all new medications. The patient's questions regarding all of their medications were answered. The patient was able to verbally demonstrate an understanding of their discharge medications. Medications at Discharge Home Medications ascorbic acid (vitamin C) 500 mg capsule 500 mg PO DAILY SUPPLEMENT 07/30/20 aspirin 81 mg tablet,delayed release 81 mg PO DAILY HEART HEALTH 07/30/20 atorvastatin 80 mg tablet 80 mg PO DAILY CHOLESTEROL 07/30/20 cholecalciferol (vitamin D3) 125 mcg (5,000 unit) capsule 125 mcg PO DAILY SUPPLEMENT 07/30/20 insulin degludec 100 unit-liraglutide 3.6 mg/mL(3 mL) subcutaneous pen (Xultophy 100/3.6) 35 unit subcut DAILY BLOOD SUGARS 07/30/20 metoprolol tartrate 25 mg tablet 25 mg PO DAILY BLOOD PRESSURE 07/30/20 blood sugar diagnostic (OneTouch Ultra Test strips) #50 ea 08/26/21 aripiprazole 2 mg tablet 2 mg PO QHS MOOD #30 tabs 12/23/22 bee pollen 550 mg capsule 550 mg PO DAILY SUPPLEMENT 12/23/22 citalopram 20 mg tablet 20 mg PO DAILY DEPRESSION #30 tabs 12/23/22 amlodipine 10 mg tablet 10 mg PO DAILY BLOOD PRESSURE 11/16/23 cyanocobalamin (vitamin B-12) 5,000 mcg sublingual tablet (Vitamin B-12) 5,000 mcg sublingual DAILY SUPPLEMENT 11/16/23 empagliflozin 10 mg tablet (Jardiance) 10 mg PO DAILY BLOOD SUGARS 11/16/23 metformin 500 mg tablet,extended release 24 hr 500 mg PO BID BLOOD SUGARS 11/16/23 zinc acetate 50 mg (zinc) capsule 50 mg PO DAILY SUPPLEMENT 11/16/23 dexamethasone 6 mg tablet 6 mg PO DAILY #7 tabs 11/18/23
--- NOTE | 2023-11-18 14:58 | CHAPLAIN ---
Type of Pastoral Visit ___ Initial Visit ___ Follow-up Visit ___ On-call Visit ___ General Patient Visit ___ Spiritual Assessment ___ Family Conference ___ Bereavement ___ Rapid Response ___ Code Blue _x__ Other (describe below) Pastoral Care Referral From ___ Patient ___ Family ___ Nurse ___ Physician ___ Post Manager ___ Re Etcher _x__ Other (describe below) Sacrament/Intervention _x__ Active listening ___ Anointing ___ Oriental Orthodox ___ Bereavement ___ Communion ___ Alejandra exploration ___ ___ Life review ___ Prayer ___ Reconciliation ___ Sacrament of Sick ___ Supportive presence ___ Wedding ___ Other (describe below) Pastoral Comments phone call made into isolation room; patient is able to answer the phone and talk although this box cutter was concerned about the breathing issues of patient so the call was brief; pt talks about having a bad day and yet when inquiring about it the patient continues with a story of concern between a school and parents; when asked to clarify the patient could not give details about what school or what the problem was; pt might be confused; pt did not reply to desire of a prayer
== END 2023-11-18 17:02 | disposition home health service (06) | DRG 178 ==
LOC: ED 15:51 → MS3 16:40
PROVIDERS: Admitting Provider Internal Medicine; Emergency Provider Emergency Medicine; PCP Nurse Practitioner; Visit Provider Student in an Organized Health Care Education/Training Program
DX: U07.1 COVID-19 (principal); J45.901 Unspecified asthma with (acute) exacerbation; E11.22 Type 2 diabetes mellitus with diabetic chronic kidney disease; N18.30 Chronic kidney disease, stage 3 unspecified; I12.9 Hypertensive chronic kidney disease with stage 1 through stage 4 chronic kidney disease, or unspecified chronic kidney disease; F32.A Depression, unspecified; G47.30 Sleep apnea, unspecified; Z79.4 Long term (current) use of insulin; E11.65 Type 2 diabetes mellitus with hyperglycemia; Z79.84 Long term (current) use of oral hypoglycemic drugs; Z79.82 Long term (current) use of aspirin; R09.02 Hypoxemia; Z86.73 Personal history of transient ischemic attack (TIA), and cerebral infarction without residual deficits; Z79.899 Other long term (current) drug therapy; Z99.89 Dependence on other enabling machines and devices
CPT/HCPCS: 36415; 71046; 71275; 80048; 80053; 82962; 83605; 84484; 85025; 87040; 87633; 87635; 93005; 93970; 94003; 94640; 94660; 94668; 94762; 97162; 97166; 99285; J7030; J7040; Q9967; A4216

== ENCOUNTER → 2024-03-17 | Outpatient (CLI) | payer MEDICARE, OTHER, SELFPAY ==
[2024-03-17 09:47] LABS: Absolute Lymphocyte Count 1.24 X10^3/uL (0.83-4.51); Absolute Neutrophil Count 6.8 X10^3/uL (2.0-7.7); Basophil# 0.05 X10^3/uL; Basophil% 0.5 % (0-1); Eosinophil# 0.41 X10^3/uL; Eosinophils% 4.5 % (0-5); Hematocrit 53.7 % (40-54); Hemoglobin 17.4 g/dL (13.0-16.5); Lymphocyte # 1.24 X10^3/ul (0.83-4.51); Lymphocyte % 13.6 % (19-41); Mean Corp Hgb Conc 32.4 g/dL (32-36); Mean Corpuscular Volume 89.5 fL (80-94); Mean Platelet Vol. 10.1 fl (6.2-12.0); Monocyte# 0.53 X10^3/uL; Monocyte% 5.8 % (0-10); NRBC Flagged by Analyzer 0 % (0-5); Neutrophil # 6.84 X10^3/uL (2.7-7.7); Neutrophil % 75.3 % (47-70); Platelet Count 187 K/mm3 (150-450); RBC Distribution Width SD 48.8 fl (35.1-43.9); White Blood Count 9.1 K/mm3 (4.4-11.0)
[2024-03-17 10:05] LABS: Vitamin D,25 Hydroxy 80.3 ng/mL
[2024-03-17 10:15] LABS: AST(SGOT) 19 U/L (15-37); Alanine Aminotransfer ALT/SGPT 30 U/L (16-61); Albumin, Serum 3.4 g/dL (3.2-5.0); Alkaline Phosphatase 120 U/L (45-117); Anion Gap 7 (5-15); BUN 28 mg/dL (7-18); BUN/Creat Ratio 18.7 RATIO (10-20); Calcium,Total 9.1 mg/dL (8.5-10.1); Chloride 112 mmol/L (98-107); Cholesterol 180 mg/dL (200); EST Glomerular Filtration Rate 48 mL/min (>60); Est Glom Filt Rate - Afr Amer 58 mL/min (>60); Globulin 3.3 g/dL (2.2-4.2); Glucose 104 mg/dL (74-106); High Density Lipoprotein 33 mg/dL; PSA,Total - Annual Screen 2.37 ng/mL (0.00-4.00); Protein, Total 6.7 g/dL (6.4-8.2); Sodium Level 142 mmol/L (136-145); Triglycerides 136 mg/dL; Very Low Density Lipoprotein 27 mg/dL (5-40)
== END | disposition home or self-care (01) ==
LOC: LAB 09:14
PROVIDERS: PCP Nurse Practitioner Family; Referring Provider Nurse Practitioner Family; Visit Provider Nurse Practitioner Family
DX: Z12.5 Encounter for screening for malignant neoplasm of prostate (principal); I10 Essential (primary) hypertension; E78.5 Hyperlipidemia, unspecified; E55.9 Vitamin D deficiency, unspecified
CPT/HCPCS: 36415; 80053; 80061; 82306; 84153; 85025; G0103

== ENCOUNTER → 2024-08-25 | Outpatient (CLI) | payer MEDICARE, OTHER, SELFPAY ==
--- NOTE | 2024-08-25 15:56 | CT_ITS ---
EXAM: CT Chest, Lung Cancer Screening Without Intravenous Contrast CLINICAL INDICATION: NICOTINE DEPENDENCE TECHNIQUE: Axial computed tomography images of the chest without intravenous contrast using low dose (LDCT) lung cancer screening protocol. This CT exam was performed using one or more of the following dose reduction techniques: automated exposure control, adjustment of the mA and/or kV according to patient size, and/or use of iterative reconstruction technique. COMPARISON: No relevant prior studies available. FINDINGS: LUNGS AND PLEURAL SPACES: Calcified granuloma of the left lower lobe. Lung emphysema/COPD. No suspicious pulmonary nodules. No consolidation. No pneumothorax. No significant effusion. HEART: Unremarkable. No cardiomegaly. No significant pericardial effusion. No significant coronary artery calcifications. MEDIASTINUM: Small esophageal hiatal hernia. BONES/JOINTS: Unremarkable. No acute fracture. No dislocation. SOFT TISSUES: Unremarkable. VASCULATURE: Unremarkable. No thoracic aortic aneurysm. LYMPH NODES: Unremarkable. No enlarged lymph nodes. CT/Low Dose CT Lung Screening IMPRESSION: 1. LUNG-RADS 1: Continue low-dose CT screening of the chest in 12 months is re commended. 2. Small esophageal hiatal hernia. Reading Location: [id number]
== END | disposition home or self-care (01) ==
PROVIDERS: PCP Nurse Practitioner Family; Referring Provider Internal Medicine Pulmonary Disease; Visit Provider Internal Medicine Pulmonary Disease
DX: Z87.891 Personal history of nicotine dependence (principal)
CPT/HCPCS: 71271

== ENCOUNTER → 2024-12-05 | Outpatient (CLI) | payer MEDICARE, OTHER, SELFPAY ==
--- NOTE | 2024-12-05 18:16 | CT_ITS ---
PROCEDURE: CHEST WITHOUT CONTRAST 12/05/2024 REASON FOR EXAM: Chest pain, solitary pulmonary nodule TECHNIQUE: Chest CT without contrast. Coronal and Sagittal reconstruction series were provided. One or more dose reduction techniques were used (e.g., Automated exposure control, adjustment of the mA and/or kV according to patient size, use of iterative reconstruction technique RADIATION DOSE SUMMARY: CTDlvol: 19.81 mGy DLP: 743.57 mGycm COMPARISON: 08/15/2024 FINDINGS: Lung windows show stable chronic interstitial fibrotic changes in both lung cowart with peripheral honeycombing and nonspecific pleural thickening in both hemithoraces. There is no organized infiltrate, or effusion, no significant interval change since the previous study. Soft tissue windows show a normal-appearing thyroid gland. No suspicious axillary mediastinal or perihilar adenopathy. Evidence of remote CABG. Limited cuts through the upper abdomen show a small hiatal hernia. Bony structures show degenerative change CT/Chest without Contrast IMPRESSION: Chronic interstitial fibrotic changes in both lung cowart with peripheral honey combing and nonspecific pleural thickening. No superimposed process or significant change since the previous study Remote CABG Reading Location: [id number]
== END | disposition home or self-care (01) ==
LOC: CT 18:16
PROVIDERS: PCP Nurse Practitioner Family; Referring Provider Internal Medicine Pulmonary Disease; Visit Provider Internal Medicine Pulmonary Disease
DX: R91.1 Solitary pulmonary nodule (principal)
CPT/HCPCS: 71250